=== PATIENT | male | born 1955 | race Caucasian/White ===

== ENCOUNTER 2024-10-21 16:21 | Emergency (ER) | payer OTHER, SELFPAY ==
[2024-10-21 16:21] VITALS: BMI 28.0
[2024-10-21 16:29] VITALS: BP 171/104
[2024-10-21 18:00] VITALS: BP 149/75
[2024-10-21] MEDS: DILAUDID 0.5 MG IV (18:35)
[2024-10-21] MEDS: ANCEF 10 IV (18:36)
[2024-10-21] MEDS: ADACEL 0.5 ML IM (18:36)
--- NOTE | 2024-10-21 18:48 | ED.SKININJ ---
HPI-Injury
General
Chief Complaint: Skin Surface Trauma
Source: patient
Exam Limitations: none
Time Seen by Provider: 10/21/24 18:05
History of Present Illness-Injury
Initial Injury comments:
69-year-old male [id number]-glhk-[id number] history of hypertension on lisinopril presents with left thumb tablesaw injury today. He notes a large laceration to his thumb. Last tetanus unknown. He feels slightly numb to the distal portion of his thumb.
Phy Exam
Physical Exam
Physical Exam:
General: Well-appearing male no acute distress
Skin: 4 cm ragged laceration involving left thumb and the distal portion of the thumb down the radial and volar aspect of the thumb. He has no motion of the IP joint. There is capillary refill to the tip of the thumb. He has decreased sensation
to the tip of the thumb. There is likely bone and tendon involvement
Course
Orders/Labs/Results
Orders:
Orders
10/21/24 16:48
Hand, Left 3 View [CR Hand - Left Min 3 Views] Urgent
Comment:
Reason For Exam: saw
10/21/24 18:24
CeFAZolin 2 GRAM [Ancef] 2 grams in 10 ml IV NOW
HYDROmorphone [Dilaudid] 0.5 mg IV NOW STA
Tetanus/Diphth/Acelpertussis [Adacel] 0.5 ml IM .ONCE ONE
Vital Signs
Initial and Last Documented VS:
Initial Vital Signs
Temp Pulse Resp BP Pulse Ox
98.5 F 80 18 171/104 96
10/21/24 16:29 10/21/24 16:29 10/21/24 16:29 10/21/24 16:29 10/21/24 16:29
Last Documented Vital Signs
Temp Pulse Resp BP Pulse Ox
98.5 F 74 18 149/75 99
10/21/24 16:29 10/21/24 18:00 10/21/24 18:00 10/21/24 18:00 10/21/24 18:00
MDM/Problems Addressed
Differential Diagnosis Includes:
Complex laceration secondary to tablesaw injury left thumb. Likely bone and tendon involvement. Question possible nerve involvement as well. X-rays of the left thumb were obtained through triage which show fracture dislocation of the IP joint
with a large open wound. IV was started Ancef given tetanus updated pain medicine ordered. Really after seeing the patient texted images to on-call orthopedics waiting to hear back from hand specialist
*Critical Care Note
Total Time (30-74mins, 75-104mins- exclusive of procedures): Not Applicable
Update Note
Update Note:
After hearing back from orthopedics, they recommended that he wound get irrigated and closed in the ER. The digital block was provided with a combination of 1% lidocaine and 0.5% Marcaine. This was then soaked with saline and peroxide and then
copiously irrigated with saline. The skin was closed with 4-0 Prolene sutures. The displaced fracture was reduced and seem to want a stay after the skin was closed. A sterile nonstick gauze dressing was applied as well as a thumb spica. He will
be discharged home with Keflex and close follow-up with orthopedics for further evaluation
ED Attending Note
-
Portions of this chart may have been created with voice recognition software.� Occasional wrong word or��sound alike� substitutions may have occurred due to the inherent limitations of voice recognition software.
Discharge Plan
Departure
Patient Disposition: Home (Routine Discharge)
Date of Disposition: 10/21/24
Time of Disposition: 21:38
Patient with high blood pressure during this ER visit?: No
Discharge Problem:
Laceration, Open fracture
Instructions: Splint Care ED, Laceration
Prescriptions:
New
cephalexin 500 mg capsule
500 mg PO Q6H Qty: 28 0RF
Referrals:
Rickey Singh MD [Family Provider] -
Roni Cabral MD [Active] -
Activity Restrictions/Additional Instructions:
Keep splint on and dry. Elevate for swelling. Use Tylenol or ibuprofen for pain. Take antibiotics as directed. Please follow-up with orthopedics. Call first thing Wednesday morning to confirm your appointment time for Wednesday
Interventions
Interventions:
*Risk Screen - Suicide Last Done: 10/21/24 17:03
*General Assessment Last Done: 10/21/24 17:03
*Neglect/Abuse Screening Last Done: 10/21/24 17:03
ED- Fall Risk Assessment Last Done: 10/21/24 17:03
*ED COVID-19 Vaccine History Last Done: 10/21/24 17:03
ED-Skin Assessment Last Done: 10/21/24 17:03
Discharge Date and Time
Print Language: TURKISH
[2024-10-21 21:31] VITALS: BP 153/91
== END 2024-10-21 21:56 | disposition home or self-care (01) ==
LOC: EMR 16:21
PROVIDERS: EMERGENCY PHYSICIAN Emergency Medicine; FAMILY PHYSICIAN Internal Medicine
DX: S62.522A Displaced fracture of distal phalanx of left thumb, initial encounter for closed fracture (principal); W31.2XXA Contact with powered woodworking and forming machines, initial encounter; I10 Essential (primary) hypertension; Z23 Encounter for immunization
CPT/HCPCS: 12002; 26755; 90471; 96374; 96375; 99284; 73130; 90715

== ENCOUNTER → 2024-10-23 12:50 | Outpatient (REF) | payer OTHER, SELFPAY ==
[2024-10-23 16:39] LABS: Blood Urea Nitrogen 23 mg/dl (9-20); Calcium 9.4 mg/dl (8.4-10.2); Carbon Dioxide 27 mmol/L (22-30); Chloride 101 mmol/L (98-107); Glucose 93 mg/dl (70-99); Sodium 138 mmol/L (135-145); eGFR > 60.00
[2024-10-23 16:40] LABS: % Basophils 0.4 % (0-2); % Eosinophils 1.6 % (0-6); % Immature Granulocytes 0.2 % (0-0.5); % Lymphocytes 22.8 % (20.5-51.1); % Monocytes 10.2 % (1.7-9.3); % Neutrophils 64.8 % (42.2-75.2); Absolute Eosinophils 0.1 10^3/uL (0-0.7); Absolute Lymphocytes 1.8 10^3/uL (1.2-3.4); Absolute Monocytes 0.8 10^3/uL (0.1-0.6); Absolute Neutrophils 5.2 10^3/uL (1.4-6.5); Hematocrit 40.2 % (39.0-52.0); Hemoglobin 13.9 g/dL (13.0-18.0); Mean Corp Hgb Conc. 34.6 g/dL (33.0-37.0); Mean Corpuscular Hgb 31.6 pg (27.0-31.0); Mean Corpuscular Volume 91.4 fL (80.0-94.0); Mean Platelet Volume 10.7 fL (7.4-10.4); Nucleated Red Blood Cells % 0 % (-); Platelet Count 218 10^3/uL (130-400); Red Cell Dist. Width 12.3 % (11.5-14.5)
== END ==
LOC: HWCARD 12:50
PROVIDERS: ATTENDING PHYSICIAN Orthopaedic Surgery Hand Surgery; FAMILY PHYSICIAN Internal Medicine
DX: Z01.818 Encounter for other preprocedural examination (principal)
CPT/HCPCS: 36415; 80048; 85025; 93005

== ENCOUNTER 2024-10-25 06:21 | Day surgery (SDC) | payer OTHER, SELFPAY ==
--- NOTE | 2024-10-24 13:32 | PTCARENOTE ---
Patients 10/23 ECG abnormal- reviewed by Dr. May- no additional interventions required
[2024-10-25 13:18] VITALS: BMI 27.0
[2024-10-25 13:19] VITALS: BP 164/93
[2024-10-25] MEDS: CELEBREX 200 MG PO (13:21)
[2024-10-25] MEDS: NORMOSOL-R/PLASMALYTE-A 1000 IV (13:28)
[2024-10-25 17:19] VITALS: BP 126/75; BP 164/93
[2024-10-25 17:30] VITALS: BP 123/79
== END 2024-10-25 18:37 | disposition home or self-care (01) ==
LOC: SDS 06:21
PROVIDERS: ATTENDING PHYSICIAN Orthopaedic Surgery Hand Surgery; FAMILY PHYSICIAN Internal Medicine
DX: S68.012A Complete traumatic metacarpophalangeal amputation of left thumb, initial encounter (principal); W31.2XXA Contact with powered woodworking and forming machines, initial encounter
CPT/HCPCS: 26727; 20103; C1713